=== PATIENT | male | born 1990 | race African-American/Black ===

== ENCOUNTER → 2020-05-27 | Emergency (ER) | payer SELFPAY ==
[~2020-05-27] VITALS: Ht 188 cm; Wt 113.4 kg
[~2020-05-27] MED LIST: ASPirin 81 mg TAB PO ONE; SODIUM CHLORIDE 0.9% 1,000 ML IV ONE; THIAMINE 100mg/ml INJ (200mg/2ml VIAL) IV ONE
[2020-05-27 11:21] VITALS: BP 144/79
== END | disposition home or self-care (01) ==
LOC: ER 11:16
DX: R07.89 Other chest pain (principal); F40.9 Phobic anxiety disorder, unspecified; E86.0 Dehydration; F12.90 Cannabis use, unspecified, uncomplicated
CPT/HCPCS: 93005

== ENCOUNTER 2020-11-13 02:12 | Emergency (ER) | payer SELFPAY ==
[~2020-11-13] VITALS: Ht 188 cm; Wt 83.9 kg
[2020-11-13 02:21] VITALS: BP 128/74
== END 2020-11-13 02:59 | disposition left against medical advice (07) ==
LOC: ER 02:12 → EDBD 02:12 → ER 02:28
DX: F19.90 Other psychoactive substance use, unspecified, uncomplicated (principal); Z53.21 Procedure and treatment not carried out due to patient leaving prior to being seen by health care provider

== ENCOUNTER 2022-06-22 04:59 | Emergency (ER) | payer SELFPAY ==
[~2022-06-22] VITALS: Ht 185.4 cm; Wt 95.3 kg
[2022-06-22] MEDS ORDERED: ETOMIDATE (2MG/ML) 20ML VIAL IV ONE ×2 (05:03→05:30)
[2022-06-22] MEDS ORDERED: ROCURONIUM 10MG/ML 10ML VIAL IV ONE ×3 (05:03→06:30)
[2022-06-22] MEDS ORDERED: MIDAZOLAM HCL 5 MG/ML-1ML VIAL ONE (05:03)
[2022-06-22 05:06] VITALS: BP 155/101
[2022-06-22] MEDS ORDERED: MIDAZOLAM DRIP 50 mg/50mL 50 ML IV ONE (05:07)
[2022-06-22] MEDS ORDERED: PROPOFOL 100 ML IV ONE (05:10)
[2022-06-22] MEDS ORDERED: TRANEXAMIC ACID 1,000 MG in SODIUM CHL 0.9% 100 ML IV ONE (05:15)
[2022-06-22] MEDS ORDERED: TRANEXAMIC ACID 10 ML ONE (05:15)
[2022-06-22] MEDS ORDERED: TETANUS-DIPTH-ACEL PERTUSSIS 0.5ML SYR Tdap IM ONE (05:30)
[2022-06-22] MEDS ORDERED: SODIUM CHLORIDE 0.9% 1,000 ML IV ONE (05:30)
[2022-06-22] MEDS ORDERED: ceFAZolin 1GM/50ML 100 ML IV ONE (05:30)
[2022-06-22] MEDS ORDERED: MIDAZOLAM HCL 5 MG/ML-1ML VIAL IV ONE (05:30)
[2022-06-22 05:39] LABS: Basophils # (auto) 0 10 ^3/uL (0-0.2); Basophils % (auto) 0.4 % (0.0-2.0); Eosinophils # (auto) 0.1 10 ^3/uL (0-0.8); Eosinophils % (auto) 1.3 % (0.0-7.0); Hematocrit 40.3 % (41.0-53.0); Hemoglobin 13.6 g/dL (13.5-17.5); Lymphocytes # (auto) 3.3 10 ^3/uL (0.4-5.4); Lymphocytes % (auto) 43.8 % (10.0-50.0); Mean Corpuscular Hemoglobin 30.2 pg (28.0-32.0); Mean Corpuscular Hgb Conc. 33.7 g/dL (32.0-36.0); Mean Corpuscular Volume 89.8 fL (80.0-100.0); Monocytes # (auto) 0.6 10 ^3/uL (0-1.3); Monocytes % (auto) 7.5 % (0.0-12.0); Neutrophils # (auto) 3.6 10 ^3/uL (1.6-8.6); Nucleated Red Blood Cells % 0.1 %; Red Blood Cells 4.48 10^6/uL (4.5-5.90); Red Cell Distribution Width 14.3 % (11.8-14.3); White Blood Cell 7.7 10^3/uL (4.4-10.8)
[2022-06-22] MEDS ORDERED: MIDAZOLAM DRIP 50 mg/50mL 50 ML IV SCH (05:45)
[2022-06-22] MEDS ORDERED: PROPOFOL 100 ML IV SCH (05:45)
[2022-06-22 05:55] LABS: Albumin 3.4 g/dL (3.4-5.0); Calcium 8.1 mg/dL (8.5-10.1); Potassium 3.2 mmol/L (3.5-5.1)
[2022-06-22 05:58] LABS: BUN/Creatinine Ratio 8.5
[2022-06-22 06:00] LABS: Bilirubin, Total 0.2 mg/dL (0.2-1.0)
[2022-06-22 06:03] LABS: Lactic Acid w/Reflex 6.3 mmol/L (0.4-2.0)
[2022-06-22 06:34] VITALS: BP 144/96
== END 2022-06-22 06:42 | disposition short-term general hospital (02) ==
LOC: ER 04:59
DX: S71.032A Puncture wound without foreign body, left hip, initial encounter (principal); S81.831A Puncture wound without foreign body, right lower leg, initial encounter; W34.00XA Accidental discharge from unspecified firearms or gun, initial encounter; Y93.89 Activity, other specified; Y92.89 Other specified places as the place of occurrence of the external cause; Y99.8 Other external cause status
CPT/HCPCS: 31500; 36415; 36430; 36600; 80053; 82805; 83605; 84484; 85025; 86850; 86900; 86901; 86920; 87070; 87205; 90471; 90715; 96365; 96368; 96375; 96376; 99285; J0690; J2250; J2704; J7030; P9016; P9017; 94002